=== PATIENT | male | born 1980 | race African-American/Black ===

== ENCOUNTER 2024-09-16 19:55 | Emergency (ER) | payer MEDICAID ==
[~2024-09-16] VITALS: Ht 182.9 cm; Wt 102.1 kg
[2024-09-16] MEDS ORDERED: ACETAMINOPHEN ES 500 MG TABLET ONE (20:42)
[2024-09-16] MEDS: ACETAMINOPHEN ES 500 MG TABLET PO ONE (20:47)
[2024-09-16] MEDS: IV NS 0.9% 1,000 ML BAG IV ONE (20:47)
[2024-09-16] MEDS ORDERED: CEFEPIME 1 GM VIAL ONE (20:50)
[2024-09-16 20:51] LABS: BASOPHILS # (AUTO) 0.1 K/uL (0.0-0.2); BASOPHILS % (AUTO) 0.6 % (0.0-2.0); EOSINOPHILS # (AUTO) 0.3 K/uL (0.0-0.7); EOSINOPHILS % (AUTO) 2.7 % (0.0-6.0); HEMATOCRIT 42 % (39-51); HEMOGLOBIN 14.4 g/dL (13.5-17.5); LYMPHOCYTES # (AUTO) 1.3 K/uL (0.8-4.8); LYMPHOCYTES % (AUTO) 11.3 % (20.0-44.0); MEAN CORPUSCULAR HEMOGLOBIN 32 PG (26.0-33.0); MEAN CORPUSCULAR HGB CONC 34 g/dl (31.0-36.0); MEAN CORPUSCULAR VOLUME 94 fL (80-96); MONOCYTES # (AUTO) 0.7 K/uL (0.1-1.30); MONOCYTES % (AUTO) 6.3 % (2.0-12.0); NEUTROPHILS # (AUTO) 8.9 K/uL (1.8-8.9); NEUTROPHILS % (AUTO) 79.1 % (43.0-81.0); PLATELET COUNT (AUTO) 163 K/uL (150-450); RED BLOOD CELL COUNT(AUTO) 4.47 MIL/uL (4.5-6.0); RED CELL DISTRIBUTION WIDTH 13.8 % (11.5-15.0); WHITE BLOOD COUNT (AUTO) 11.3 K/uL (4.3-11.0)
[2024-09-16] MEDS ORDERED: VANCOMYCIN 1 GM /D5W 250 ML PB IV ONE (20:51)
[2024-09-16] MEDS: CEFEPIME 1 GM in IV D5W 50 ML IV ONE (20:52)
[2024-09-16 20:57] LABS: CALCIUM, SERUM 8.5 mg/dL (8.5-10.1); CREATININE 1.6 mg/dL (0.6-1.3); POTASSIUM 3.5 mmol/L (3.5-5.1)
[2024-09-16 21:03] LABS: INR 1.01 (0.91-1.10); PARTIAL THROMBOPLASTIN TIME 29.1 SEC (24.3-34.3); PROTHROMBIN TIME 10.7 SECS (9.2-11.1)
[2024-09-16 21:05] LABS: LACTIC ACID 0.7 mmol/L (0.4-2.0)
[2024-09-16 21:07] LABS: ALBUMIN 3.6 g/dL (3.4-5.0); BILIRUBIN,DIRECT 0.1 mg/dL (0.0-0.2); BILIRUBIN,TOTAL 0.6 mg/dL (0.2-1.0); TOTAL PROTEIN, SERUM 7.7 g/dL (6.4-8.2)
[2024-09-16] MEDS: VANCOMYCIN 1 GM in IV D5W 250 ML IV ONE (21:27)
[2024-09-16 22:11] LABS: APPEARANCE,URINE CLEAR (CLEAR); BILIRUBIN,URINE NEGATIVE (NEGATIVE); BLOOD, URINE NEGATIVE Ery/uL (NEGATIVE); COLOR,URINE YELLOW (YELLOW); KETONES,URINE NEGATIVE (NEGATIVE); LEUKOCYTE ESTERASE ,URINE NEGATIVE (NEGATIVE); NITRITE, URINE NEGATIVE (NEGATIVE); PROTEIN,URINE NEGATIVE (NEGATIVE); UGLUCOSE NEGATIVE (NEGATIVE); UROBILINOGEN,URINE 0.2 EU/dL (0.2)
[2024-09-16] MEDS ORDERED: HYDROMORPHONE 1 MG/1 ML DISP.SYRIN ONE (23:35)
[2024-09-16] MEDS ORDERED: ONDANSETRON HCL/PF 4 MG/2 ML VIAL ONE (23:35)
[2024-09-16] MEDS: HYDROMORPHONE 1 MG/1 ML DISP.SYRIN IV ONE (23:36)
[2024-09-16] MEDS: ONDANSETRON HCL/PF - ER 4 MG/2 ML VIAL IV ONE (23:36)
[2024-09-16] MEDS: IV NS 0.9% 1,000 ML IV ONE (23:36)
[2024-09-17] MEDS ORDERED: LEVO500T90 PO (01:28)
[2024-09-17] MEDS ORDERED: KETO10TA2 PO (01:28)
[2024-09-17 01:46] VITALS: BP 122/77; TEMP 100.3; O2SAT 98
== END 2024-09-17 01:47 | disposition home or self-care (01) ==
LOC: ER 20:01
DX: R50.9 Fever, unspecified (principal); R09.81 Nasal congestion; R07.89 Other chest pain; R51.9 Headache, unspecified
CPT/HCPCS: 99285; 72125; 96365; 96361; 96375; 71045; 96367; 93005; 70450; 72131; 84145; 85025; 80048; 87040 ×2; 87086; 83605; 80076; 81003; 36415; 85730; J3370 ×2; J2405 ×2; J7060 ×2; J7030; A4223; J0692 ×2; J1171